=== PATIENT | male | born 1940 | race Caucasian/White ===

== ENCOUNTER 2023-02-18 10:16 | Day surgery (SDC) | payer OTHER ==
[~2023-02-18] VITALS: Ht 180.3 cm; Wt 72.2 kg
[~2023-02-18 10:16] MED LIST: ACET325 PO; AMLO5 PO; Aspir 8181 MG PO; CELE200 PO; GABA300 PO; HYDACE5325 PO; MELATONIN1010 PO; METO100ER PO; TAMS.4ER PO
--- NOTE | 2023-02-18 10:41 | NUR ---
02/18/23 1041 Nhung Huff AT 1039 PLEAYANAET AT 1040
[2023-02-18 11:30] VITALS: BP 143/86
== END 2023-02-18 11:46 | disposition home or self-care (01) ==
LOC: ORSCSDS 10:16
PROVIDERS: Ophthalmology
PROC: 08RK3JZ Replacement of Left Lens with Synthetic Substitute, Percutaneous Approach (ICD-10-PCS; principal; 2023-02-18 11:30)
DX: H25.13 Age-related nuclear cataract, bilateral (principal); H21.81 Floppy iris syndrome; I10 Essential (primary) hypertension; Z79.82 Long term (current) use of aspirin; Z79.899 Other long term (current) drug therapy
CPT/HCPCS: J2250; J3301; J7040; V2632

== ENCOUNTER 2023-05-19 13:15 | Day surgery (SDC) | payer OTHER ==
[~2023-05-19] VITALS: Ht 180.3 cm; Wt 75.1 kg
[2023-05-19 15:22] VITALS: BP 138/90
== END 2023-05-19 15:11 | disposition home or self-care (01) ==
LOC: ORSCSDS 13:15
PROVIDERS: Ophthalmology
PROC: 08RJ3JZ Replacement of Right Lens with Synthetic Substitute, Percutaneous Approach (ICD-10-PCS; principal; 2023-05-19 14:30)
DX: H25.11 Age-related nuclear cataract, right eye (principal); Z96.1 Presence of intraocular lens; H21.81 Floppy iris syndrome; I10 Essential (primary) hypertension; G47.30 Sleep apnea, unspecified; Z87.891 Personal history of nicotine dependence; Z79.82 Long term (current) use of aspirin; Z79.899 Other long term (current) drug therapy
CPT/HCPCS: J2250; J2405; J3010; J3301; J7040; V2632